=== PATIENT | male | born 1940 | race Caucasian/White ===

== ENCOUNTER 2019-02-14 05:04 | Day surgery (SDC) | payer OTHER, MEDICARE ==
[2019-02-14] MEDS ORDERED: Midazolam 1 MG/ML 2 ML SDV IV ONE ×7 (05:05→06:49)
[2019-02-14] MEDS ORDERED: fentaNYL 100 MCG/2 ML SDV IV ONE ×3 (05:05→06:38)
[2019-02-14] MEDS ORDERED: fentaNYL 100 MCG/2 ML SDV ONE (06:12)
[2019-02-14] MEDS ORDERED: Midazolam 1 MG/ML 2 ML SDV ONE (06:12)
[2019-02-14] MEDS ORDERED: Dextrose 5%-0.45% NaCl 1,000 ML IV SCH (06:15)
--- NOTE | 2019-02-14 12:42 | OR ---
DATE: 02/14/2019 PROCEDURE: Total colonoscopy. INSTRUMENT USED: [id number] Olympus video colonoscope. PREMEDICATIONS: Fentanyl 100 mcg intravenous, Versed 4 mg intravenous, nasal O2 cannula. The procedure was done under pulse oximetry, BP recording, and cardiac monitoring. INDICATION: The patient with previous colonic polyps. Surveillance colonoscopic examination is done for detection of any polypoid lesions and removal, endoscopic hemostasis therapy if needed. DESCRIPTION OF PROCEDURE: Initial rectal exam showed BPH. Limited rigid anoscopy examination unremarkable. The colonoscope was passed with ease up to the ileocecal area. Photographs including NBI views were obtained of the cecum showing angiodysplasia without bleeding from it. The bowel preparation was found to be adequate, Hayward scale 3. No stricture. No vascular ectasia. No bleeding was noted from any of visualized areas at the commencement of the examination. The bowel preparation was found to be adequate, Hayward scale 3. No stricture. No large isolated ulceration seen. No evidence of diffuse inflammatory bowel disease in the form of friability, contact bleeding, or ulcerations. No polyp or tumor mass identified. Probing the proximal sides of folds and flexures, using adequate distention and clearing of the stool material, withdrawal of the scope was made. [id number] time over 6 minutes. No bleeding was noted from any of the visualized areas at the completion of examination. IMPRESSION: Cecal angiodysplasia. The patient tolerated the procedure well. [facility] /[id number]
--- NOTE | 2019-02-14 12:45 | LETTER ---
02/14/2019 Asha Andrews, [address] [place] [address] RE: VERNA HART : 1940 Dear Ms. Andrews: Mr. Verna Hart had colonoscopic examination done this morning and he tolerated the procedure well. I herewith send a copy of the endoscopy note and photographs for your review. Thank you. Sincerely, [facility] /[id number]
== END 2019-02-14 09:00 | disposition home or self-care (01) ==
LOC: DL.ENDO 05:04
PROVIDERS: ATTEND Internal Medicine Gastroenterology
DX: Z12.11 Encounter for screening for malignant neoplasm of colon (principal); K55.20 Angiodysplasia of colon without hemorrhage; I10 Essential (primary) hypertension; E03.9 Hypothyroidism, unspecified; F17.210 Nicotine dependence, cigarettes, uncomplicated; N40.0 Benign prostatic hyperplasia without lower urinary tract symptoms; E66.09 Other obesity due to excess calories; Z68.30 Body mass index [BMI] 30.0-30.9, adult; Z86.010 Personal history of colon polyps; Z80.0 Family history of malignant neoplasm of digestive organs
CPT/HCPCS: 45378; J2250; J3010; J7042